=== PATIENT | male | born 1990 | race Caucasian/White ===

== ENCOUNTER 2024-03-09 07:09 | Emergency (ER) | payer OTHER ==
[2024-03-09 07:33] VITALS: BP 120/91; PULSE 58; RESP 18; TEMP 98.1; BMI 23.6
[2024-03-09] MEDS ORDERED: ACETAMINOPHEN INJECTION 100 ML ONE (08:03)
[2024-03-09] MEDS: ACETAMINOPHEN 1000 MG/100 ML BAG IVPB ONE (08:29)
[2024-03-09 09:04] LABS: HEMATOCRIT 44.1 % (35.4-49); HEMOGLOBIN 14.6 G/dL (11.7-16.9); MCH 29.2 pg (25.7-33.7); MCHC 33.2 g/dl (32.0-35.9); MEAN CELL VOLUME 87.9 fl (80-96); MEAN PLT VOLUME 9.4 fl (7.5-11.1); PLATELET COUNT 201.2 10^3/uL (134-434); RBC 5.02 10^6/uL (4.00-5.60); RDW 14.3 % (11.9-15.9)
[2024-03-09 09:15] LABS: ALBUMIN 4.4 g/dl (3.4-5.0); ALK PHOS 34 U/L (45-117); ANION GAP 7 mmol/L (4-13); BILIRUBIN,TOTAL 0.8 mg/dl (0.2-1); CALCIUM 9.7 mg/dl (8.5-10.1); CHLORIDE 103 mmol/L (98-107); CO2 30 mmol/L (21-32); GLUCOSE,RANDOM 90 mg/dl (74-106); POTASSIUM 3.9 mmol/L (3.5-5.1); SGOT/AST 15 U/L (15-37); SGPT/ALT 13 U/L (7-52); SODIUM 140 mmol/L (136-145); TOT PROT 6.7 g/dl (6.4-8.2)
[2024-03-09 09:29] LABS: PLATELET ESTIMATE ADEQUATE
== END 2024-03-09 09:55 | disposition home or self-care (01) ==
LOC: FER 07:09
PROC: 3E033NZ Introduction of Analgesics, Hypnotics, Sedatives into Peripheral Vein, Percutaneous Approach (ICD-10-PCS; principal; 2024-03-09)
DX: R09.1 Pleurisy (principal)
CPT/HCPCS: 36415; 71046-TC-FY; 80053; 81003; 84484; 85027; 85379; 87086; 93005; 99285-25; J0131